=== PATIENT | male | born 1990 | race Caucasian/White ===

== ENCOUNTER 2020-11-14 12:40 | Outpatient (CLI) | payer OTHER | END 2020-11-14 12:41 | disposition home or self-care (01) | LOC: EDBD 12:40 → RAD 12:40 | PROVIDERS: ATTEND Orthopaedic Surgery | DX: M84.351A Stress fracture, right femur, initial encounter for fracture (principal); L04.9 Acute lymphadenitis, unspecified; M79.89 Other specified soft tissue disorders; M25.569 Pain in unspecified knee; J02.0 Streptococcal pharyngitis ==

== ENCOUNTER 2023-01-07 00:28 | Emergency (ER) | payer OTHER ==
[2023-01-07] MEDS ORDERED: Bacitracin 1 PK ONE (02:35)
[2023-01-07] MEDS ORDERED: Lidocaine 1% PF 5 ML VIAL ONE (02:35)
== END 2023-01-07 03:05 | disposition home or self-care (01) ==
LOC: ERS 00:28
DX: S01.85XA Open bite of other part of head, initial encounter (principal); W54.0XXA Bitten by dog, initial encounter
CPT/HCPCS: 12013